=== PATIENT | male | born 1965 | race Caucasian/White ===

== ENCOUNTER 2018-11-03 07:10 | Day surgery (SDC) | payer OTHER ==
--- NOTE | 2018-11-02 18:27 | Pre-Procedure Note/Attestation ---
Pre-Procedure Note/Attestation Complete Prior to Procedure Planned Procedure: not applicable Procedure Narrative: 1. Septoplasty 2. SMR inf right turbinate 3. SMR inf left turbinate Indications for Procedure Pre-Operative Diagnosis: 1. Septal deviation 2. Hypertrophied left inferior turbinate 3. hypertrophied right inf. turbinate Attestation I attest that I discussed the nature of the procedure; its benefits; risks and complications; and alternatives (and the risks and benefits of such alternatives ), prior to the procedure, with the patient (or the patient's legal graphic art sales representative). I attest that, if there was a reasonable possibility of needing a blood transfusion, the patient (or the patient's legal graphic art sales representative) was given the [place] [employer] standardized written summary, pursuant to the [place] Blood Safety Act ([place] Health and Safety Code # 1645, as amended). I attest that I re-evaluated the patient just prior to the surgery and that there has been no change in the patient's H&P, done by Ezequiel Campos and reviewed by me including pertinent labs. Sen Cerda MD Nov 02, 2018 18:27
--- NOTE | 2018-11-02 18:28 | Brief Operative Note ---
Immediate Post Operative Note Operative Note Chief Complaint: nasal airway obstruction Pre-op Diagnosis: 1. Septal deviation 2. Hypertrophied left inferior turbinate 3. hypertrophied right inf. turbinate Procedure: 1. Septoplasty 2. SMR inf right turbinate 3. SMR inf left turbinate Post-op Diagnosis: same as pre-op Surgeon: Sen Cerda Shirring Machine Operator: none Additional Surgeons: none Anesthesiologist: Jacky Anesthesia: general Specimen: none Complications: none Fluids: [id number] Estimated Blood Loss: volume - 10 cc Drains: none Packing: Nasal gel Implant(s) used?: No Sen Cerda MD Nov 02, 2018 18:28
--- NOTE | 2018-11-02 18:32 | Discharge Instructions ---
Discharge Instructions Discharge Instructions Follow up with: next week, pt has appt already scheduled Diet: regular Resume Normal Activity?: No Activity: light activity Pneumonia Vaccine: pt refused vaccine Influenza Vaccine (Feb to Jul): pt refused vaccine Follow Up Orders pt has printed instructions, given to him after review during his pre op visit. RX-pt already has-Amox and [facility] Return to Work/School on: Nov 17, 2018 Special Instructions ice to face x 48 hours For Surgical Patients Dressing Care: may change May shower: No For Congestive Heart Failure Reminder Report to your physician any weight gain of 5 pounds or more in one week. Sen Cerda MD Nov 02, 2018 18:32
--- NOTE | 2018-11-02 18:33 | History & Physical ---
History and Physical History & Physicial H/P by Dr. Campos as well as labs reviewed by me and approved. Sen Cerda MD Nov 02, 2018 18:33
[~2018-11-03] VITALS: Ht 175.3 cm; Wt 81.6 kg
[2018-11-03] VITALS (10 sets, daily range): BP systolic 107–144; BP diastolic 66–96
[~2018-11-03 07:10] MED LIST: AMOXICILLIN500 MG ORAL; Dexamethasone 4mg/ml vial IVP ONE; NORCO 5-325 TA1 EACH ORAL; TRAZODONE HCL150 MG ORAL
[2018-11-03] MEDS ORDERED: ceFAZolin sod 1 GM in D5W 55 ML IV ONE (07:15)
--- NOTE | 2018-11-03 07:52 | Anethesia Preoperative Eval ---
Anesthesia Pre-op PMH/ROS General Date of Evaluation: Nov 03, 2018 Anesthesiologist: Jacky ASA Score: ASA 2 Mallampati Score Class I : Soft palate, uvula, fauces, pillars visible Class II: Soft palate, uvula, fauces visible Class III: Soft palate, base of uvula visible Class IV: Only hard plate visible Mallampati Classification: Class II Surgeon: Zaida Diagnosis: deviated septum Surgical Procedure: septoplasty, SMr TURBS Anesthesia History: none Family History: no anesthesia problems Allergies: Coded Allergies: No Known Allergies (Unverified , 11/03/18) Medications: see eMAR Patient NPO?: Yes NPO Date: Nov 02, 2018 NPO Time: 22:00 Past Medical History Cardiovascular: Denies: HTN, CAD, CA, valve dz, arrhythmia, other Pulmonary: Denies: asthma, COPD, MANUEL, other Gastrointestinal/Genitourinary: Denies: GERD, CRI, ESRD, other Neurologic/Psychiatric: Reports: depression/anxiety; Denies: dementia, CVA, TIA, other Endocrine: Denies: DM, hypothyroidism, steroids, other HEENT: Denies: cataract (L), cataract (R), glaucoma, KLETSEL DEHE WINTUN (L), KLETSEL DEHE WINTUN (R), other Hematology/Immune: Denies: anemia, DVT, bleeding disorder, other Musculoskeletal/Integumentary: Denies: OA, RA, DJD, DDD, edema, other PSxH Narrative: septoplasty, right shoulder arthroscopy, TLIF L4-5, right knee ACL, left knee arthroscopy Anesthesia Pre-op Phys. Exam Physician Exam Last Vital Signs Date Time Temp Pulse Resp B/P (MAP) Pulse Ox O2 Delivery O2 Flow Rate FiO2 11/03/18 07:40 98.2 78 18 120/74 98 Room Air Constitutional: NAD Cardiovascular: RRR Respiratory: CTA Airway Exam Mallampati Score: Class II MO: full ROM: full Teeth: intact Anesthesia Pre-op A/P Labs see chart Studies Pre-op Studies: EKG - sr Risk Assessment & Plan Assessment: ASA II Plan: GA Status Change Before Surgery: No Pre-Antibiotics Drug: Ancef 2g Given Within 1 Hr of Incision: Yes Cherry Thacker MD Nov 03, 2018 07:52
[2018-11-03] MEDS ORDERED: Lidocaine 1% MPF 10mg/ml 5ml ONE (08:16)
[2018-11-03] MEDS ORDERED: Propofol 200mg/20ml IV ONE (08:16)
[2018-11-03] MEDS ORDERED: fentaNYL 100 mcg/2 mL IV ONE (08:16)
[2018-11-03] MEDS ORDERED: Midazolam 2mg/2ml Inj ONE (08:16)
[2018-11-03] MEDS ORDERED: Metoclopramide 10mg/2ml Inj ONE (08:17)
[2018-11-03] MEDS ORDERED: Dexamethasone 4mg/ml vial ONE (08:17)
[2018-11-03] MEDS ORDERED: Lidocaine 1% 10mg/ml/Epi 0.005mg/ml 30ml vial INJ ONE (08:21)
[2018-11-03] MEDS ORDERED: Bupivacaine w/Epi 0.5% 30ml Vial INJ ONE (08:22)
[2018-11-03] MEDS ORDERED: LR 1000ml 1,000 ML IVLG SCH (08:22)
[2018-11-03] MEDS ORDERED: Sterile Water Irrig 1000ml IRRIG ONE (08:30)
[2018-11-03] MEDS ORDERED: fentaNYL 100 mcg/2 mL IV PRN (08:30)
[2018-11-03] MEDS ORDERED: DiphenhydrAMINE 50mg/ml Inj IVP PRN (08:30)
[2018-11-03] MEDS ORDERED: LORazepam Inj 2mg/ml 1ml IV PRN (08:30)
[2018-11-03] MEDS ORDERED: LR 1000ml ONE (08:30)
[2018-11-03] MEDS ORDERED: Midazolam 2mg/2ml Inj IVP PRN (08:30)
[2018-11-03] MEDS ORDERED: Metoclopramide 10mg/2ml Inj IVP PRN ×2 (08:30→17:00)
[2018-11-03] MEDS ORDERED: Hydromorphone 0.5mg/0.5ml inj IVP PRN (08:30)
[2018-11-03] MEDS ORDERED: NS Irrig 1000ml IRRIG ONE (08:35)
[2018-11-03] MEDS ORDERED: Cocaine HCl 4% 4ml vial TOPIC ONE (08:42)
[2018-11-03] MEDS ORDERED: HYDROcodone/Acetamin 5/325 tab ORAL PRN (09:15)
--- NOTE | 2018-11-03 09:15 | 48 Hour Post Anesthesia Eval ---
Post Anesthesia Evaluation Procedure: septoplasty, smr turbs Date of Evaluation: Nov 03, 2018 Airway: patent Nausea: No Vomiting: No Hydration Status: adequate Cardiopulmonary Status: at [facility] Mental Status/LOC: patient returned to baseline Post-Anesthesia Complications: 0 Follow-up care needed: ready to discharge Cherry Thacker MD Nov 03, 2018 09:15
--- NOTE | 2018-11-03 09:15 | Immediate Post-Op Evaluation ---
Immediate Post-Op Evalulation Immediate Post-Op Evalulation Procedure: septoplasty, smr turbs Date of Evaluation: Nov 03, 2018 Time of Evaluation: 09:18 IV Fluids: 500 Blood Products: 0 Estimated Blood Loss: 5 Urinary Output: 0 Blood Pressure Systolic: 108 Blood Pressure Diastolic: 72 Pulse Rate: 76 Respiratory Rate: 16 O2 Sat by Pulse Oximetry: 97 Temperature (Fahrenheit): 97.9 Pain Score (1-10): 0 Nausea: No Vomiting: No Complications 0 Patient Status: awake, reacts, patent, none Hydration Status: adequate Drug: Ancef 2g Given Within 1 Hr of Incision: Yes Cherry Thacker MD Nov 03, 2018 09:15
[2018-11-03] MEDS ORDERED: HYDROcodone/Acetamin 5/325 tab ONE (10:28)
[2018-11-03] MEDS ORDERED: HYDROmorphone 1mg/ml Carpuject SUBQ PRN (17:00)
--- NOTE | 2018-11-03 20:45 | Operative Note - Dictated ---
DATE OF OPERATION: 11/03/2018 SURGEON: Sen Cerda M.D. WIRE SETTER: None. ANESTHESIOLOGIST: Dr. Rico. ANESTHESIA: LMA general anesthesia, 10 mL 50:50 mixture of 1% lidocaine, 1000 epinephrine and Sensorcaine 0.5 with 1:200,000 epinephrine. Finally 4 mL of 4% topical cocaine placed on four nasal pledgets, two on either nostril accounted for at the end of the case. INDICATION FOR SURGERY: Septal deviation and hypertrophied right and left inferior turbinates and the patient has failed nasal steroids and antihistamines. PREOPERATIVE DIAGNOSIS: Septal deviation and hypertrophied right and left inferior turbinates and the patient has failed nasal steroids and antihistamines. POSTOPERATIVE DIAGNOSIS: Septal deviation and hypertrophied right and left inferior turbinates and the patient has failed nasal steroids and antihistamines. FINDINGS: Septal deviation and hypertrophied right and left inferior turbinates and the patient has failed nasal steroids and antihistamines. PROCEDURE: 1. Septoplasty. 2. Submucous resection of the right inferior turbinate. 3. Submucous resection of the left inferior turbinate. TECHNIQUE: The patient prepped and draped in usual manner. A time-out was performed and all agreed as to the equipment and procedures to be done. Initially, incision made in the left inferior turbinate with a 15 blade. I then had two passes with a radiofrequency wand, setting of 6, 10 seconds each time after coating with saline gel. I then outfractured with a Boies elevator. I then approached the right inferior turbinate. Incision made with a 15 blade anterior inferior aspect. Radiofrequency wand passed x2, setting 6, 10 seconds, coated with saline gel. I then outfractured with a Boies elevator. I made a Panchito incision on the left hand side of the septum with a 15 blade. Elevated with a dental elevator and subperichondrially. I then refractured the deviated septum to the midline. I then sewed in place with a 4-0 plain suture. A gel was placed in the nose one syringe between the two nares. ESTIMATED BLOOD LOSS: 10 mL. COUNTS: None. DRAINS: None. Sponge and needle count correct as agreed all in the room. The patient was awake and alert, and stable, extubated prior to transfer to the recovery room. Sen Cerda M.D. DR: WALKER JOB#: [id number] CC:
== END 2018-11-03 11:10 | disposition home or self-care (01) ==
LOC: SUR 07:10
DX: J34.2 Deviated nasal septum (principal); J34.3 Hypertrophy of nasal turbinates; F41.9 Anxiety disorder, unspecified; F32.9 Major depressive disorder, single episode, unspecified
CPT/HCPCS: 30140; 30520; J0690; J1100; J1170; J2250; J2405; J2704; J2765; J3010; 94003; 94150